=== PATIENT | female | born 1965 | race Two or more races ===

== ENCOUNTER 2018-05-08 13:52 | Emergency (ER) | payer OTHER ==
[~2018-05-08] VITALS: Ht 167.6 cm; Wt 71.2 kg
[2018-05-08 13:58] VITALS: BP 135/78
[2018-05-08] MEDS ORDERED: KETOROLAC TROMETH 60MG/2ML VIAL IM ONE (14:15)
[2018-05-08 15:11] LABS: Urine Bacteria FEW /hpf (None Seen); Urine Blood Negative /uL (Negative); Urine Specific Gravity 1.011 (1.001-1.035); Urine WBC 5 /hpf (0 - 5)
== END 2018-05-08 15:28 | disposition home or self-care (01) ==
LOC: ER 13:55
DX: N39.0 Urinary tract infection, site not specified (principal); M54.5 Low back pain; I10 Essential (primary) hypertension
CPT/HCPCS: 81001; 93005; 96372; 99284; J1885

== ENCOUNTER 2022-12-27 19:59 | Emergency (ER) | payer SELFPAY ==
[~2022-12-27] VITALS: Ht 160 cm; Wt 72.7 kg
[2022-12-27] MEDS ORDERED: ACET500T58 PO (22:07)
[2022-12-27] MEDS ORDERED: ZOFR4T PO (22:07)
[2022-12-27] MEDS ORDERED: HYDROcodone-ACET 5/325MG TAB PO ONE (22:45)
[2022-12-27] MEDS ORDERED: ONDANSETRON ODT 4 MG TAB PO ONE (22:45)
[2022-12-27 23:15] VITALS: BP 132/89; PULSE 74; RESP 16; TEMP 98; O2SAT 100
== END 2022-12-27 23:15 | disposition home or self-care (01) ==
LOC: EDBD 19:59 → ER 20:07
DX: S09.90XA Unspecified injury of head, initial encounter (principal); R51.9 Headache, unspecified; I10 Essential (primary) hypertension; Z98.51 Tubal ligation status; W22.8XXA Striking against or struck by other objects, initial encounter; Y93.89 Activity, other specified; Y92.89 Other specified places as the place of occurrence of the external cause; Y99.8 Other external cause status
CPT/HCPCS: 70450; 99284; Q0162

== ENCOUNTER 2023-07-23 14:52 | Emergency (ER) | payer OTHER, MEDICAID ==
[~2023-07-23] VITALS: Ht 167.6 cm; Wt 62.3 kg
[~2023-07-23 14:52] MED LIST: ACET500T58 PO; ZOFR4T PO
[2023-07-23] MEDS ORDERED: PERCOT PO (15:57)
[2023-07-23 16:05] VITALS: BP 135/99; PULSE 99; RESP 18; TEMP 97.7; O2SAT 97
== END 2023-07-23 16:08 | disposition home or self-care (01) ==
LOC: ER 14:52
DX: G89.29 Other chronic pain (principal); M54.50 Low back pain, unspecified; I10 Essential (primary) hypertension; Z76.0 Encounter for issue of repeat prescription; Z98.51 Tubal ligation status